=== PATIENT | male | born 1955 | race Caucasian/White ===

== ENCOUNTER → 2016-11-15 | Outpatient (CLI) | payer OTHER ==
[~2016-11-15] MED LIST: ALT/10 PO; ASPI-390 PO; CALC-51 PO; FISHOIL PO; FRCT/ PO; IBUP-1451 PO; KETO10TA PO; OXYC-57 PO; excedrin migraine PO
[2016-11-15 11:19] LABS: BLOOD UREA NITROGEN 15 mg/dl (7-18); BUN/CREATININE RATIO 13.9 (10-20); CALCIUM 8.9 mg/dl (8.5-10.1); CARBON DIOXIDE 28 mmol/L (21-32); CHLORIDE 106 mmol/L (98-107); GLUCOSE 94 mg/dl (70-99); POTASSIUM 3.9 mmol/L (3.5-5.1); SODIUM 142 mmol/L (136-145)
[2016-11-15 11:29] LABS: CHOLESTEROL 161 mg/dl (0-200); CHOLESTEROL/HDL RATIO 3.1; HDL CHOLESTEROL 52 mg/dl; LDL CHOLESTEROL CALCULATED 88 mg/dl; PROSTATE SPECIFIC ANTIGEN 0.699 ng/ml (0.000-4.000); TRIGLYCERIDES 104 mg/dl (0-150); VERY LOW DENSITY LIPOPROT CALC 21 mg/dl
== END | disposition home or self-care (01) ==
LOC: C.LABBC 08:38
PROVIDERS: ATTEND Internal Medicine
DX: E03.9 Hypothyroidism, unspecified (principal); I10 Essential (primary) hypertension; Z12.5 Encounter for screening for malignant neoplasm of prostate

== ENCOUNTER → 2016-12-09 | Outpatient (CLI) | payer OTHER ==
--- NOTE | 2016-12-09 10:42 | DIAGNOSTIC IMAGING REPORT ---
LEFT SHOULDER 4 VIEWS CLINICAL HISTORY: Left shoulder pain. FINDINGS: 4 views of the left shoulder are obtained. No prior studies are available for comparison at the time of dictation. The Skeletal structures are well mineralized. No fracture or dislocation is seen. Mild productive degenerative changes noted at the acromioclavicular joint. Minimal arthritic change and sclerosis is seen in the greater tuberosity of the humeral head. The glenohumeral articulation is preserved. The overlying soft tissues are within normal limits. The imaged left lung parenchyma appears clear. IMPRESSION: Mild degenerative change as above with no acute bony abnormality seen in the left shoulder. Electronically signed by: Sergio Dee M.D. 12/09/2016 10:40 AM Dictated Date/Time: 12/09/2016 10:39 AM
== END | disposition home or self-care (01) ==
LOC: C.RAD1850 10:25
PROVIDERS: ATTEND Internal Medicine
DX: M25.512 Pain in left shoulder (principal)

== ENCOUNTER → 2017-01-03 | Outpatient (CLI) | payer OTHER ==
--- NOTE | 2017-01-03 09:12 | DIAGNOSTIC IMAGING REPORT ---
MRI LEFT SHOULDER NO CONTRAST CLINICAL HISTORY: Left shoulder pain with limited range of motion. COMPARISON STUDY: Conventional radiographic study dated 12/09/2016 FINDINGS: Imaging was performed in the sagittal, coronal, and axial planes. There are no findings to indicate occult fracture. The bicipital tendon appears normal. No labral tears are visualized. There is no evidence of significant muscular atrophy. There is a full-thickness rotator cuff tear at the supraspinous insertion. There is no tendinous retraction. There is a small amount of fluid in the subacromial bursa. IMPRESSION: Full-thickness supraspinatus tear. No tendinous retraction. Electronically signed by: Ihsan Guillaume M.D. 01/03/2017 9:10 AM Dictated Date/Time: 01/03/2017 9:05 AM
== END | disposition home or self-care (01) ==
LOC: C.MRIBC 07:50
PROVIDERS: ATTEND Orthopaedic Surgery
DX: M75.102 Unspecified rotator cuff tear or rupture of left shoulder, not specified as traumatic (principal)

== ENCOUNTER → 2017-01-08 | Outpatient (CLI) | payer OTHER ==
[2017-01-08 12:18] LABS: BASO % 0.8 %; BASO ABS # 0.04 K/uL (0-0.2); COMPLETE YES; EOS % 2.3 %; HEMATOCRIT 43.5 % (42-52); IG% 0.4 %; LYMPH % 17.3 %; LYMPH ABS # 0.89 K/uL (1.2-3.4); MEAN CELL VOLUME 91.4 fL (80-100); MEAN CORPUSCULAR HEMOGLOBIN 32.6 pg (25-34); MEAN CORPUSCULAR HGB CONC 35.6 g/dl (32-36); MEAN PLATELET VOLUME 12.4 fL (7.4-10.4); MONO % 10.3 %; NEUT % 68.9 %; PLATELET COUNT 186 K/uL (130-400); RED BLOOD COUNT 4.76 M/uL (4.7-6.1); WHITE BLOOD COUNT 5.15 K/uL (4.8-10.8)
[2017-01-08 13:13] LABS: BLOOD UREA NITROGEN 15 mg/dl (7-18); BUN/CREATININE RATIO 15.6 (10-20); CALCIUM 9.5 mg/dl (8.5-10.1); CARBON DIOXIDE 29 mmol/L (21-32); CHLORIDE 108 mmol/L (98-107); CREATININE 0.98 mg/dl (0.60-1.40); GLUCOSE 86 mg/dl (70-99); POTASSIUM 4.3 mmol/L (3.5-5.1); SODIUM 144 mmol/L (136-145)
== END | disposition home or self-care (01) ==
LOC: C.CPL 09:35
PROVIDERS: ATTEND Orthopaedic Surgery
DX: M75.122 Complete rotator cuff tear or rupture of left shoulder, not specified as traumatic (principal)

== ENCOUNTER → 2017-01-23 | Day surgery (SDC) | payer OTHER ==
[2017-01-14 11:25] VITALS: Ht 191.8 cm; Wt 95.5 kg
[~2017-01-23] VITALS: Ht 191.8 cm; Wt 95.5 kg
[~2017-01-23] MED LIST changes: +ATROPINE SULFATE 0.1 MG/ML 5ML SYR IV PRN; +BUPIVACAINE/EPINEPHRINE 0.25% 1:200,000 30 ML VIAL ONE; +CEFAZOLIN 2000 MG/60 ML D5W IV SCH; +EpHEDrine SULFATE 50MG/5ML SYR ONE; +EpINEphrine INJ 1MG/ML AMP 1 MG/ML AMP ONE; +FENTANYL CITRATE INJ 50 MCG/1 ML 2 ML VIAL IV PRN; +FENTANYL CITRATE INJ 50 MCG/1 ML 2 ML VIAL ONE; -FRCT/ PO; +GLYCOPYRROLATE INJ 0.2 MG/ML VIAL ONE; -IBUP-1451 PO; +KETOROLAC TROMETHAMINE 30 MG/ML VIAL IV. PRN; +LABETALOL HCL IV 5 MG/ML 20ML IV PRN; +LACTATED RINGER'S 1000ML 1,000 ML IV SCH; +LIDOCAINE HCL 2% 2 ML VIAL (20MG/ML) ONE; +MIDAZOLAM HCL 1 MG/ML 2ML VIAL ONE; +ONDANSETRON INJ 2 MG/ML 2 ML VIAL IV PRN; +ONDANSETRON INJ 2 MG/ML 2 ML VIAL ONE; +OXYCODONE/ACETAMINOPHEN 5-325 TAB PO PRN; +PROPOFOL IV EMULSION 10 MG/ML 20 ML VIAL IV ONE; +ROPIVACAINE 0.5% 5 MG/ML 30 ML VIAL ONE; +SODIUM CHLORIDE 0.9% 1000ML 1,000 ML IV SCH; -excedrin migraine PO
--- NOTE | 2017-01-23 10:39 | History & Physical Bridge - SC ---
H&P Re-Evaluation Bridge Note: I have examined the patient, reviewed the History & Physical and in the interval since the performance of the History & Physical I have noted the following changes of clinical significance: No changes noted
--- NOTE | 2017-01-23 12:14 | Discharge Instructions-SurgCtr ---
Discharge Instructions Date of Service Jan 23, 2017. Visit Reason for Visit: Full Thickness Rotator Cuff Tear Discharge Discharge Diagnosis / Problem: SAME ABOVE Discharge Goals Goal(s): Decrease discomfort, Improve function Medications Stopped Medications Name(s): fish oil stopped x 1 week. Restart Stopped Medication(s): MAY RESTART AFTER THE TORADOL Activity Recommendations Activity Limitations: as noted below Lifting Limitations: until after follow-up appointment Exercise/Sports Limitations: until after follow-up appointment Shower/Bathe: tomorrow Anesthesia . Post Anesthesia Instructions: If you have had General Anesthesia or IV Sedation: * Do not drive today. * Resume driving when surgeon permits. * Do not make important decisions or sign legal documents today. * Call surgeon for: 1. Temperature elevations greater than 101 degrees F. 2. Uncontrollable pain. 3. Excessive bleeding. 4. Persistent nausea and vomiting. 5. Medication intolerance (nausea, vomiting or rash). * For nausea and vomiting use only clear liquids such as: tea, soda, bouillon until nausea subsides, then gradually increase diet as tolerated. * If you have any concerns or questions, call your surgeon's office. If physician is unavailable and it is an emergency, call 911 or go to the nearest emergency room. . Instructions / Follow-Up Instructions / Follow-Up MEDICATIONS: * Resume previous medications unless instructed otherwise by your surgeon. * Always take pain medication on a full stomach or with food to avoid upset stomach. * Do not drink alcohol or drive while taking narcotics. * Ibuprofen or Tylenol may be taken if narcotic not needed. SPECIAL CARE INSTRUCTIONS: __ None _X_ Keep extremity elevated and iced x 48 hours; apply ice 20-30 minutes 8-10 times/day. May remove at night. _X_ Sling (MAY REMOVE AFTER 48 HOURS ONLY TO SHOWER AND FOR THERAPY) _X_24 hrs/day __ Remove at night __ Shoulder Immobilizer __ 24 hrs/day __ Remove at night _X_ Dressing __ Maintain until seen in office, may shower with plastic over site _X_ Remove dressings in 24-48 hours and then may shower _X_ Cover incisions with band-aids after showering __ Do not remove steri-strips Call physician if chills or temperature rises above 102 degrees or pain unrelieved by prescribed pain medications at . . Diet Recommendations Home Diet: no limitations Fluid Restriction: None Procedures Procedures Performed: Left Shoulder Arthroscopy, Small Rotator Cuff Repair, Acromioplasty Pending Studies Studies pending at discharge: no Work Instructions Return To Work: 1 week Lifting Limitations: NO LIFTING WITH LEFT ARM Medical Emergencies . Who to Call and When: Medical Emergencies: If at any time you feel your situation is an emergency, please call 911 immediately. . Non-Emergent Contact Non-Emergency issues call your: Primary Care Provider Call Non-Emergent contact if: you have a fever, temperature is above 101.5 . . "Provider Documentation" section prepared by Matt Henry. .
--- NOTE | 2017-01-23 12:53 | Anesthesia Progress Nt - [facility] ---
Anesthesia Post Op Note Date & Time Jan 23, 2017 at 12:53 Vital Signs Pain Intensity: 0 Vital Signs Past 12 Hours Date Time Temp Pulse Resp B/P Pulse Ox O2 Delivery O2 Flow Rate FiO2 01/23/17 12:46 128/103 01/23/17 12:44 60 18 01/23/17 12:44 61 18 100 01/23/17 12:43 36.5 60 14 145/96 100 Room Air 01/23/17 12:40 145/96 01/23/17 12:39 58 22 96 01/23/17 12:39 59 22 01/23/17 12:35 130/95 01/23/17 12:34 54 17 100 01/23/17 12:34 55 17 01/23/17 12:30 140/97 01/23/17 12:29 60 14 100 01/23/17 12:29 59 14 01/23/17 12:25 147/103 01/23/17 12:24 50 18 100 01/23/17 12:24 50 18 01/23/17 12:20 138/99 01/23/17 12:19 64 13 01/23/17 12:19 63 13 100 01/23/17 12:16 157/99 01/23/17 12:14 66 15 100 01/23/17 12:14 67 15 01/23/17 12:12 141/90 01/23/17 12:11 36.4 69 12 141/90 100 Diffusion Mask 6 01/23/17 10:39 9 01/23/17 10:38 48 16 100 01/23/17 10:38 48 01/23/17 10:35 125/83 01/23/17 10:33 48 01/23/17 10:33 47 16 100 01/23/17 10:32 50 16 100 01/23/17 10:32 50 01/23/17 10:30 137/94 01/23/17 10:27 49 01/23/17 10:27 48 18 100 01/23/17 10:26 139/97 01/23/17 10:22 55 0 146/105 100 01/23/17 10:22 56 01/23/17 10:17 48 0 99 01/23/17 10:17 48 01/23/17 10:16 140/102 01/23/17 10:14 139/104 01/23/17 10:12 49 0 99 01/23/17 10:12 49 01/23/17 10:07 46 01/23/17 10:07 47 0 99 01/23/17 10:02 0 01/23/17 09:57 53 0 99 01/23/17 09:57 50 01/23/17 09:52 45 18 01/23/17 09:52 44 18 99 01/23/17 09:47 48 20 01/23/17 09:47 48 20 98 01/23/17 09:42 48 15 01/23/17 09:42 46 15 100 01/23/17 09:37 47 16 100 01/23/17 09:37 49 16 01/23/17 09:32 56 19 01/23/17 09:32 56 19 100 01/23/17 09:27 42 12 100 01/23/17 09:27 42 12 01/23/17 09:22 46 16 100 01/23/17 09:22 45 16 01/23/17 09:17 47 16 01/23/17 09:17 47 16 100 01/23/17 09:12 46 15 01/23/17 09:12 46 15 100 01/23/17 09:07 43 16 01/23/17 09:07 43 16 100 01/23/17 09:02 49 11 01/23/17 09:02 47 11 158/100 100 01/23/17 08:42 143/101 01/23/17 08:34 36.9 43 20 153/113 99 Room Air Notes Mental Status: alert / awake / arousable, participated in evaluation Pt Amnestic to Procedure: Yes Nausea / Vomiting: adequately controlled Pain: adequately controlled Airway Patency, RR, SpO2: stable & adequate BP & HR: stable & adequate Hydration State: stable & adequate Anesthetic Complications: no major complications apparent
[2017-01-23 12:55] VITALS: TEMP 36.4
--- NOTE | 2017-01-23 13:01 | OPERATIVE REPORT ---
DATE OF OPERATION: 01/23/2017 PREOPERATIVE DIAGNOSES: Severe external impingement and bursal-sided rotator cuff tear of the left shoulder. POSTOPERATIVE DIAGNOSES: Same. PROCEDURE: Left shoulder diagnostic arthroscopy with extensive debridement, acromioplasty, and bursal-sided rotator cuff repair. SURGEON: Dr. Sourav Patton. SKINNER PELTS: Bart Henry PA-C, whose assistance was necessary for positioning of the arm and helping with instrumentation. ANESTHESIA: General with a left interscalene nerve block. COMPLICATIONS: None. CONDITION: Stable to PACU. INDICATIONS: Brennan is a pleasant 62-year-old male who is an avid spelunker. He has been dealing with a greater than 1 year history of left shoulder pain. MRI and clinical examination were diagnostic for severe external impingement and partial bursal-sided rotator cuff tear. After failing conservative treatment, he elected to undergo arthroscopy. DESCRIPTION OF PROCEDURE: On 01/23/2017, he arrived at [facility] for the above procedure. He was seen in the preoperative holding area and the operative extremity was identified and signed. He was given a preoperative antibiotic and a left interscalene nerve block. He was taken back to the operating room, laid on the table in supine position and put under general anesthesia. He was then put into the beachchair position. The left shoulder was prepped and draped in sterile fashion. Time-out was done and the patient and operative extremity was properly identified. A scope was introduced into the posterior portal. Diagnostic arthroscopy showed a very small area of grade 4 chondral changes on the superior aspect of the humeral head. The remainder of the cartilage looked intact. There was a little fraying of the labrum. The biceps tendon was intact. There was a little red on the dorsal aspect, but no fraying or signs of impingement. There was a little fraying of the articular side of the rotator cuff, but no evidence of tear. An anterior portal was made. A shaver was used to do a debridement of the intraarticular structures. The scope was then put into the subacromial space. A lateral portal was made. A shaver was used to do an extensive debridement including complete subacromial and subdeltoid bursectomy. The coracoacromial ligament was teased off the undersurface of the acromion and a 5-0 grey was used to complete an acromioplasty of a Bigliani type 3 acromion. A shaver was used to remove any excess debris. The distal clavicle appeared to be intact. Attention was then turned to the rotator cuff. There was a small anterior bursal-sided rotator cuff tear. An additional anterolateral portal was made and Sherrill cannulas were placed. The tuberosity was prepared with a ring curette. The rotator cuff was then fixed with an Arthrex modified SpeedBridge configuration using 4.75-mm BioComposite SwiveLock suture anchor and 2 FiberTapes. This gave a nice knotless bridge repair. Multiple pictures were taken. The scope was placed back into the glenohumeral joint and the articular margin of the rotator cuff looked good and the biceps tendon moved freely through the dominga mechanism. Arthroscopic instruments were removed from the shoulder. Portal sites were closed with 3-0 nylon. He was then placed in a soft dressing and a left arm sling. He was then extubated, transferred to a litter and taken to the postanesthesia care unit in stable condition. He tolerated the procedure well. I attest to the content of the Intraoperative Record and any orders documented therein. Any exceptio ns are noted below.
[2017-01-23 13:25] VITALS: BP 142/90; PULSE 47; O2SAT 100
== END | disposition home or self-care (01) ==
LOC: X.SURG 08:10
PROVIDERS: ATTEND Orthopaedic Surgery
DX: M75.102 Unspecified rotator cuff tear or rupture of left shoulder, not specified as traumatic (principal); M75.41 Impingement syndrome of right shoulder; I10 Essential (primary) hypertension; Z98.890 Other specified postprocedural states; Z68.26 Body mass index [BMI] 26.0-26.9, adult

== ENCOUNTER 2017-03-13 22:45 | Emergency (ER) | payer OTHER ==
[~2017-03-13] VITALS: Ht 190.5 cm; Wt 99.1 kg
[~2017-03-13 22:45] MED LIST changes: -ATROPINE SULFATE 0.1 MG/ML 5ML SYR IV PRN; -BUPIVACAINE/EPINEPHRINE 0.25% 1:200,000 30 ML VIAL ONE; -CEFAZOLIN 2000 MG/60 ML D5W IV SCH; -EpHEDrine SULFATE 50MG/5ML SYR ONE; -EpINEphrine INJ 1MG/ML AMP 1 MG/ML AMP ONE; -FENTANYL CITRATE INJ 50 MCG/1 ML 2 ML VIAL IV PRN; -FENTANYL CITRATE INJ 50 MCG/1 ML 2 ML VIAL ONE; -GLYCOPYRROLATE INJ 0.2 MG/ML VIAL ONE; -KETOROLAC TROMETHAMINE 30 MG/ML VIAL IV. PRN; -LABETALOL HCL IV 5 MG/ML 20ML IV PRN; -LACTATED RINGER'S 1000ML 1,000 ML IV SCH; -LIDOCAINE HCL 2% 2 ML VIAL (20MG/ML) ONE; -MIDAZOLAM HCL 1 MG/ML 2ML VIAL ONE; -ONDANSETRON INJ 2 MG/ML 2 ML VIAL IV PRN; -ONDANSETRON INJ 2 MG/ML 2 ML VIAL ONE; -OXYCODONE/ACETAMINOPHEN 5-325 TAB PO PRN; -PROPOFOL IV EMULSION 10 MG/ML 20 ML VIAL IV ONE; -ROPIVACAINE 0.5% 5 MG/ML 30 ML VIAL ONE; -SODIUM CHLORIDE 0.9% 1000ML 1,000 ML IV SCH
[2017-03-13 22:50] VITALS: TEMP 36.5; Ht 190.5 cm; Wt 99.1 kg
[2017-03-14 00:07] VITALS: BP 142/89; PULSE 45; O2SAT 99
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
== END 2017-03-14 00:08 | disposition home or self-care (01) ==
LOC: C.EDB 22:46 → C.EDC 03-14 00:08
DX: H43.392 Other vitreous opacities, left eye (principal); I10 Essential (primary) hypertension; Z87.01 Personal history of pneumonia (recurrent); Z79.899 Other long term (current) drug therapy

== ENCOUNTER → 2017-11-20 | Outpatient (CLI) | payer OTHER ==
[~2017-11-20] MED LIST changes: -KETO10TA PO; -OXYC-57 PO
== END | disposition home or self-care (01) ==
LOC: C.PATHSPEC 18:31
PROVIDERS: ATTEND Plastic Surgery
DX: L98.9 Disorder of the skin and subcutaneous tissue, unspecified (principal); D18.01 Hemangioma of skin and subcutaneous tissue

== ENCOUNTER → 2018-02-19 | Outpatient (CLI) | payer OTHER ==
[2018-02-19 17:38] LABS: BLOOD UREA NITROGEN 13 mg/dl (7-18); CALCIUM 8.9 mg/dl (8.5-10.1); CARBON DIOXIDE 29 mmol/L (21-32); CREATININE 1.08 mg/dl (0.60-1.40); GLUCOSE 77 mg/dl (70-99); POTASSIUM 3.9 mmol/L (3.5-5.1); SODIUM 144 mmol/L (136-145)
== END | disposition home or self-care (01) ==
LOC: C.LABBC 13:13
PROVIDERS: ATTEND Internal Medicine
DX: E03.9 Hypothyroidism, unspecified (principal); Z12.5 Encounter for screening for malignant neoplasm of prostate; I10 Essential (primary) hypertension; I49.3 Ventricular premature depolarization; W57.XXXA Bitten or stung by nonvenomous insect and other nonvenomous arthropods, initial encounter

== ENCOUNTER → 2018-04-17 | Outpatient (CLI) | payer OTHER ==
[2018-04-17 10:55] LABS: BLOOD UREA NITROGEN 14 mg/dl (7-18); CALCIUM 8.7 mg/dl (8.5-10.1); CARBON DIOXIDE 27 mmol/L (21-32); CHOLESTEROL 172 mg/dl (0-200); CREATININE 1.06 mg/dl (0.60-1.40); GLUCOSE 89 mg/dl (70-99); LDL CHOLESTEROL CALCULATED 99 mg/dl; SODIUM 139 mmol/L (136-145)
== END | disposition home or self-care (01) ==
LOC: C.LABBC 08:29
PROVIDERS: ATTEND Internal Medicine
DX: Z00.00 Encounter for general adult medical examination without abnormal findings (principal)